=== PATIENT | female | born 1950 | race Caucasian/White ===

== ENCOUNTER → 2018-05-04 10:38 | Outpatient (CLI) | payer MEDICARE, SELFPAY ==
--- NOTE | 2018-05-04 10:38 | COLBX_PTH ---
PATIENT: LEAH ALLEN LOC: [facility] U#:[id number] AGE/SX: 74/F ROOM: RE05/04/[address]: Dr. Francois Fernandez MD : [id number] BED: DIS: SPEC #: [id number] RECD: 05/04/18 15:38 STATUS: SANTIAGO VIRGILIO #: [id number] [place]: 05/04/18 10:[address]: Francois Fernandez DEPT: SURGICAL PATHOLOGY RECD BY: Dimitry Sykes ENTERED: 05/05/18 13:39 SP TYPE: COLON BX OTHR DR: FINESSE Tissues: Right colon Procedures: Surgery Specimen Level IV HEADER OPERATION: Colonoscopy with biopsy PRE-OP DIAGNOSIS: Abdominal pain, nausea, diverticulitis TISSUE SUBMITTED: Biopsy polyp right colon - rule out adenoma MICROSCOPIC DIAGNOSIS Polyp right colon, biopsy: Tubular adenoma. FORTINO:beverley 05/08/18 MICROSCOPIC DESCRIPTION Slides are reviewed. GROSS DESCRIPTION Received in fixative is one container labeled with the patient's name and designated polyp right colon. The specimen consists of one irregular fragment of light linton soft tissue that measures 0.3 x 0.3 x 0.1 cm. The specimen is totally submitted in one cassette. / SJ:beverley 05/05/18 TC:1 CPT: 52005
== END ==
PROVIDERS: Referring Provider Internal Medicine Gastroenterology; Visit Provider Internal Medicine Gastroenterology
DX: R10.9 Unspecified abdominal pain (principal); R11.0 Nausea; K57.92 Diverticulitis of intestine, part unspecified, without perforation or abscess without bleeding
CPT/HCPCS: 88305